=== PATIENT | male | born 1945 | race Caucasian/White ===

== ENCOUNTER → 2020-08-06 10:06 | Outpatient (POV) | payer MEDICARE, SELFPAY ==
[2020-08-06 10:40] VITALS: BP 141/84; PULSE 78; RESP 18; O2SAT 98; BMI 29.9
--- NOTE | 2020-08-06 12:12 | HMH.PMCON ---
Assessment and Plan (1) Sacroiliitis Status: Chronic Category: Medical Code(s): M46.1 - Sacroiliitis, not elsewhere classified (2) Back pain Status: Chronic Category: Medical Code(s): M54.9 - Dorsalgia, unspecified - Assessment and plan all Dx Assessment and Plan for all problems:: We will schedule the patient for bilateral SI joint injections. We will also take over his tramadol 50 mg 1 p.o. 3 times daily. I will follow-up with him after his injections reassess his symptoms at that time he has been instructed to call the office if he has any issues prior to his next appointment. [facility] #[id number] reviewed and appropriate. Dr. Hernandez has reviewed this note and agrees with this plan of care. This note was dictated using voice recognition software and may contain errors or omissions HPI - Data of Consult Consult date: 08/06/20 Requesting Physician: Ana Cruz APRN Primary Care Provider: Referral Provider, MD - Consult Narrative Reason for consult: Low back pain History of present illness: Mr. Aggarwal is a 74 year old male who presents since today for consultation in regards to his low back and hip pain. Patient has bilateral hip and knee pain he has been seeing Dr. Campos Hernández for injections in this area. He states it helps somewhat. Patient rates his pain a 6 out of 10. Most of his pain is over his bilateral SI joints. He has a positive Samara test SI joint compression test and Derek's test and distraction test bilaterally. We discussed bilateral SI joint injections. He would like to move forward with this. He is tried and failed medications, physical therapy. Patient states that rest, IcyHot and tramadol decreases pain while increased activity increases his pain. CC: Ana Cruz APRN [facility] History I have reviewed the patient's past medical history: Yes Medical History: Reports:: Hyperlipidemia Denies:: Cancer, Diabetes Mellitus Type 1, Diabetes Mellitus Type 2, MRSA *Have you ever received a pneumonia vaccine?: Yes *Have you received a flu vaccine this season?: Yes Other Surgeries: Yes: No Previous Surgery Amputation: No Fractures: No - *Social History Alcohol Intake: former Alcohol Intake Frequency:: other *Occupational Status:: retired Housing: house Household Members: other *Travel in the last 8 weeks: None Family Hx:: Unable to obtain Review of Systems - Review of Systems ROS General: no recent weight change, no fever, no sleep disturbances Respiratory: no cough, no shortness of air, no recurring pulmonary infections Cardiovascular/Peripheral Vascular: No chest pain, No palpitations, no edema, no shortness of breath. Gastrointestinal: no new onset incontinence, normal bowel movements reported Genitourinary: no new onset incontinence Musculoskeletal: SI joint pain Psychiatric: normal mood/ affect Neurological: [denies new onset weakness in extremities], [denies new onset balance issues] Meds Home Medications Medication Instructions Recorded Confirmed Type Tramadol HCl [Tramadol 50mg 50 mg PO TID #90 tab 08/06/20 Rx Tab] Objective Vital signs: Pulse Resp BP Pulse Ox 78 18 141/84 H 98 08/06/20 10:40 08/06/20 10:40 08/06/20 10:40 08/06/20 10:40 Narrative: Physical Exam General: Alert and oriented x3, no acute distress, pleasant and cooperative, [on room air] Lungs: Resps E/U, Symmetrical chest expansion, Eyes: PERRL Musculoskeletal: Flexion and extension of lumbar spine somewhat guarded secondary to pain, deep tendon reflexes normal, strength in upper and lower extremities [5/5], [abnormal gait noted] Neurological: speech clear, delivery supervisor 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
== END ==
PROVIDERS: Visit Provider Clinical Nurse Specialist Family Health
DX: M46.1 Sacroiliitis, not elsewhere classified (principal); M54.9 Dorsalgia, unspecified
CPT/HCPCS: 99202; G0463

== ENCOUNTER 2020-08-24 10:16 | Day surgery (SDC) | payer MEDICARE, SELFPAY ==
[2020-08-24 10:34] VITALS: BP 156/78; PULSE 71; RESP 18; TEMP 36.6; O2SAT 98; BMI 29.9
[2020-08-24 11:11] VITALS: BP 125/85; PULSE 85; RESP 18
[2020-08-24 11:12] VITALS: BP 128/89; PULSE 85; RESP 18; O2SAT 98
--- NOTE | 2020-08-24 11:15 | HMH.PMPROC ---
- Procedure Date: 08/24/20 Time: 11:15 Anesthesiologist:: Huey Hernandez MD Complications:: None Pre-procedure Diagnosis:: Sacroiliitis Post-procedure Diagnosis:: Same Indications for Procedure:: Patient reports 74-year-old white male who we are treating for bilateral hip pain. He is tender over both SI joints. He has a positive Derek's test bilaterally. He has a positive Samara test bilaterally. He has a positive SI joint compression test bilaterally. Is positive distraction test bilaterally. We will do bilateral SI joint injections under fluoroscopy today to help with his pain symptoms. Procedure Details:: B/L SI joint injection under fluoroscopy Informed consent was obtained and the risks and benefits of the procedure was explained to the patient. The patient was taken to the procedure room and placed prone on the procedure table. The patient was prepped using ChloraPrep. The skin and subcutaneous tissues overlying the SI joints were anesthetized using lidocaine. I placed a 22-gauge needle first in the left SI joint and second in the right SI joint. Needle placement was confirmed with dye. After this we injected 5 mL bupivacaine 0.25% and Depo-Medrol 40 mg into each SI joint. Patient tolerated the procedure well with no complication. Plan and Disposition:: We will follow-up with him in 2 weeks. Will reevaluate symptoms at that time.
[2020-08-24 11:20] VITALS: BP 169/71; PULSE 68; RESP 18; O2SAT 98
== END 2020-08-24 11:21 | disposition home or self-care (01) ==
LOC: SC.PAINP 10:19
PROVIDERS: PCP Family Medicine; Visit Provider Anesthesiology
DX: M46.1 Sacroiliitis, not elsewhere classified (principal); E78.5 Hyperlipidemia, unspecified; J45.909 Unspecified asthma, uncomplicated; F32.9 Major depressive disorder, single episode, unspecified
CPT/HCPCS: 27096; G0260; J1030; Q9966

== ENCOUNTER → 2020-09-20 09:44 | Outpatient (POV) | payer MEDICARE, SELFPAY ==
[2020-09-20 10:30] VITALS: BP 142/77; PULSE 74; RESP 18; O2SAT 99; BMI 29.2
--- NOTE | 2020-09-20 12:43 | HMH.PAINSOAP ---
[facility] [place] Pain Management SOAP Note Subjective:: Patient is pleasant 74-year-old white male who presents today for follow-up after his SI joint injection. Patient did not get any relief. He has had multiple injections with no long-term relief. Most of his pain is in his lower back and radiating around into his groin area. Patient does have extreme tenderness over his low back. Does have some radiation into his leg at times. We discussed a repeat lumbar MRI. He has not had one recently he rates his pain a 7 out of 10. He is currently on tramadol 50 mg 1 p.o. 3 times daily. We discussed increasing it to 100 mg 3 times daily for short period of time he is agreeable [facility] #[id number] reviewed and appropriate ROS General: no recent weight change, no fever, no sleep disturbances Respiratory: no cough, no shortness of air, no recurring pulmonary infections Cardiovascular/Peripheral Vascular: No chest pain, No palpitations, no edema, no shortness of breath. Gastrointestinal: no new onset incontinence, normal bowel movements reported Genitourinary: no new onset incontinence Musculoskeletal: Pain, leg pain Psychiatric: normal mood/ affect Neurological: [denies new onset weakness in extremities], [denies new onset balance issues] Objective:: Physical Exam General: Alert and oriented x3, no acute distress, pleasant and cooperative, [on room air] Lungs: Resps E/U, Symmetrical chest expansion, Eyes: PERRL Musculoskeletal: Flexion and extension of lumbar spine somewhat guarded secondary to pain, deep tendon reflexes normal, strength in upper and lower extremities [5/5], [abnormal gait noted] Neurological: speech clear, 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 We will follow up with him afterwards reassess his symptoms at that time he has been instructed to call the office if he has any issues prior to his next appointment. Dr. Hernandez has reviewed this note and agrees with this plan of care. This note was dictated using voice recognition software and may contain errors or omissions [facility] [place] History I have reviewed the patient's past medical history: Yes Medical History: Reports:: Hyperlipidemia Denies:: Cancer, Diabetes Mellitus Type 1, Diabetes Mellitus Type 2, MRSA, Seizures *Have you ever received a pneumonia vaccine?: Yes *Have you received a flu vaccine this season?: Yes Other Medical History: Denies: Blood Transfusion Reaction Other Surgeries: Yes: No Previous Surgery, Hernia Repair Amputation: No Fractures: No - *Social History Smoking Status: Unknown if ever smoked Alcohol Intake: never Alcohol Intake Frequency:: other *Occupational Status:: other Housing: house Household Members: spouse *Travel in the last 8 weeks: None Family Hx:: Unable to obtain
== END ==
PROVIDERS: PCP Family Medicine; Visit Provider Clinical Nurse Specialist Family Health
DX: M54.9 Dorsalgia, unspecified (principal); M46.1 Sacroiliitis, not elsewhere classified; M54.16 Radiculopathy, lumbar region
CPT/HCPCS: 99212; G0463

== ENCOUNTER → 2020-10-11 10:16 | Outpatient (POV) | payer MEDICARE, SELFPAY ==
[2020-10-11 10:28] VITALS: BP 167/83; PULSE 62; RESP 18; O2SAT 97; BMI 30.7
--- NOTE | 2020-10-11 11:04 | HMH.PAINSOAP ---
[facility] Pain Management SOAP Note Subjective:: Patient is a 74-year-old white male who presents today for follow-up. He is being treated for low back pain with lumbar radiculopathy type symptoms. Patient has had an SI injection for which she did not get much relief. He says that the pain starts at the base of his low back area and radiates to bilateral sides. He also reports to be having pain into his bilateral lower extremities which gets worse with walking. He does report to be losing his balance with ambulation. Patient is also complaining of bilateral groin pain. He says that the pain does worsen with any type of movement. He did undergo an MRI of his lumbar spine which she is here today to discuss. He does rate his pain a 7 out of 10 today. He has tried anti-inflammatories and has also tried home stretching. Physical therapy has not given him relief in the past. He does have rheumatoid arthritis for which she is treated with injections by his hat cleaner. Review of Systems General: No recent weight changes, no fever, no sleep disturbances Respiratory: No cough, no shortness of air, no recurring pulmonary infections Cardiovascular/peripheral vascular: No chest pain, no palpitations, no edema, no shortness of breath Gastrointestinal: No new onset incontinence, normal bowel movements reported Genitourinary: No new onset incontinence Musculoskeletal: Low back pain with radiation into bilateral legs and bilateral groin Psychiatric: Normal mood/affect Neurological: [Denies weakness in extremities], [denies balance issues] Objective:: Physical exam General: Alert and oriented x3, no acute distress, pleasant and cooperative, [on room air] Lungs: Respirations even and unlabored, symmetrical chest expansion Eyes: PERRL Musculoskeletal: Flexion and extension of lumbar spine somewhat guarded secondary to pain, deep tendon reflexes normal, strength in upper and lower extremities [4/5], [abnormal gait noted] Neurological: Speech clear, forms designer equal, no gross sensory deficit Assessment:: Degenerative disc disease lumbar spine with lumbar radiculopathy symptoms, nerve root impingement at L5 Plan:: The patient and I discussed undergoing an injection to his lumbar spine. He is in agreement. He has tried and failed conservative therapies of physical therapy in the past along with continued home stretching and anti-inflammatories. He is not on anticoagulation therapy. We will schedule him for a lumbar epidural steroid injection at L4-L5. The patient's MRI does note him to have a large renal cyst which is also recommended he undergo a renal protocol CT versus MRI to rule out neoplasm. I have contacted the patient's primary care provider regarding the accidental findings on his MRI. He was also given a copy of his MRI to provide to his primary care provider. Patient says he will stop at his primary care provider's office today to give her the imaging study. We will see him back after his injection to reevaluate his symptoms. Risks and benefits of the procedure have been explained to the patient. Patient would like to proceed with the procedure. Dr. Hernandez has reviewed this note and agrees with this plan of care. This note was dictated using voice recognition software and make contain errors or omissions. [facility] History I have reviewed the patient's past medical history: Yes Medical History: Reports:: Hyperlipidemia Denies:: Cancer, Diabetes Mellitus Type 1, Diabetes Mellitus Type 2, MRSA, Seizures *Have you ever received a pneumonia vaccine?: Yes *Have you received a flu vaccine this season?: Yes Other Medical History: Denies: Blood Transfusion Reaction Other Surgeries: Yes: No Previous Surgery, Hernia Repair Amputation: No Fractures: No - *Social History Smoking Status: Unknown if ever smoked Alcohol Intake: never Alcohol Intake Frequency:: other *Occupational Status:: unemployed Housing: house Household Members: spouse *
== END ==
PROVIDERS: PCP Family Medicine; Visit Provider Clinical Nurse Specialist Family Health
DX: M51.16 Intervertebral disc disorders with radiculopathy, lumbar region (principal); G54.4 Lumbosacral root disorders, not elsewhere classified
CPT/HCPCS: 99212; G0463

== ENCOUNTER 2020-10-19 09:45 | Day surgery (SDC) | payer MEDICARE, SELFPAY ==
[2020-10-19 10:05] VITALS: BP 165/81; PULSE 72; RESP 18; TEMP 36.6; O2SAT 98; BMI 29.1
[2020-10-19 10:30] VITALS: BP 122/77; PULSE 67; RESP 18; O2SAT 96
[2020-10-19 10:35] VITALS: BP 138/85; PULSE 69; RESP 18; O2SAT 94
--- NOTE | 2020-10-19 10:47 | P.PCN_ITS ---
- Procedure Date: 10/19/20 Time: 10:52 Anesthesiologist:: Alisa Murillo MD Complications:: None Pre-procedure Diagnosis:: Lumbar radiculopathy, Degenerative disc disease of the lumbar spine, lumbar spondylosis Post-procedure Diagnosis:: Same Indications for Procedure:: This patient is a very pleasant 74-year-old male who presents today with low back pain radiating into both legs was bilateral groin pain to the above diagnosis. He has trialed conservative treatment including oral pain medications as well as home stretching with more relief. He is also previously undergone an SI joint injection but reports he did not receive much pain relief afterwards. Of note, he also has rheumatoid arthritis for which he is receiving injections by his cargo tank mechanic. Plan for today is for the patient to undergo lumbar epidural steroid injection #1 at L4-L5. Procedure Details:: Informed consent was obtained and the risk and benefits of the procedure was explained to the patient. The patient was taken to the procedure room. The patient was placed prone on the procedure table. The patient was prepped and draped in sterile fashion. C-arm fluoroscopy was used to view the lumbar spine. Skin and subcutaneous tissues were anesthetized using lidocaine. I placed an 18-gauge epidural needle and advanced into the L4-L5 interspace using fluoroscopic guidance and [id number] to air and saline. After confirmation of needle placement in the epidural space with dye I injected 2 mL of lidocaine 1.5% with Depo-Medrol 80 mg. Patient tolerated the procedure well with no complications. Plan and Disposition:: We will follow-up with the patient in 2 weeks and will reevaluate symptoms at that time.
[2020-10-19 10:49] VITALS: BP 119/77; PULSE 67; RESP 20; O2SAT 98
== END 2020-10-19 10:49 | disposition home or self-care (01) ==
LOC: SC.PAINP 09:46
PROVIDERS: PCP Family Medicine; Visit Provider Anesthesiology Pain Medicine
DX: M51.16 Intervertebral disc disorders with radiculopathy, lumbar region (principal); M47.896 Other spondylosis, lumbar region
CPT/HCPCS: 62323; J1040; Q9966

== ENCOUNTER → 2020-11-15 11:13 | Outpatient (POV) | payer MEDICARE, SELFPAY ==
[2020-11-15 11:23] VITALS: BP 113/64; PULSE 67; RESP 18; O2SAT 99; BMI 28.3
--- NOTE | 2020-11-15 11:58 | HMH.PAINSOAP ---
[facility] Pain Management SOAP Note Subjective:: Patient is a 75-year-old white male who presents today for follow-up after a lumbar epidural steroid injection. Patient is being treated for degenerative disc disease lumbar spine with lumbar radiculopathy symptoms and lumbar spondylosis. Patient says that he got about 5 days of relief after the injection. He says that he was much more functional following the injection. He had the injection at L4-L5 area. It was his number 1 injection. His pain is a 6 out of 10 today. He has tried and failed an SI injection. He has also tried and failed physical therapy for more than 6 weeks along with home stretching. He does see a briar cutter for rheumatoid arthritis and is getting injections for his arthritis. Patient says that he would like to undergo a repeat injection. He has pain in his low back that is radiating into his bilateral lower extremities. Patient I did discuss if he does not get significant relief he may be a candidate for medial branch block/facet joint injections. He also has pain when he is bending forward and with turning and extension at waist. Because he got great relief with his initial injection, he would like to proceed with a repeat injection. Patient says he got about 70% relief for 5 days. Review of Systems General: No recent weight changes, no fever, no sleep disturbances Respiratory: No cough, no shortness of air, no recurring pulmonary infections Cardiovascular/peripheral vascular: No chest pain, no palpitations, no edema, no shortness of breath Gastrointestinal: No new onset incontinence, normal bowel movements reported Genitourinary: No new onset incontinence Musculoskeletal: Low back pain with radiation into lower extremities intermittently, pain worse with leaning forward and turning and twisting at waist Psychiatric: Normal mood/affect Neurological: [Denies weakness in extremities], [denies balance issues] Objective:: Physical exam General: Alert and oriented x3, no acute distress, pleasant and cooperative, [on room air] Lungs: Respirations even and unlabored, symmetrical chest expansion Eyes: PERRL Musculoskeletal: Flexion and extension of [] lumbar spine somewhat guarded secondary to pain, deep tendon reflexes normal, strength in upper and lower extremities [5/5], [abnormal gait noted] Neurological: Speech clear, 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 He is not on anticoagulation therapy. We will see him back after his injection for reevaluation of symptoms. If the patient does not get relief with this injection he may be a candidate for medial branch block/facet joint injections. Patient I did discuss these injections today, however, because he got significant relief with his last epidural steroid injection, he would like to repeat an epidural injection once more. We will follow-up with him afterwards to reevaluate his symptoms. Risks and benefits of the procedure have been explained to the patient. Patient would like to proceed with the procedure. Possible side effects of corticosteroids have been discussed with the patient. Patient has been instructed to contact the clinic with any concerns before the next appointment. Dr. Hernandez has reviewed this note and agrees with this plan of care. This note was dictated using voice recognition software and make contain errors or omissions. [facility] History I have reviewed the patient's past medical history: Yes Medical History: Reports:: Hyperlipidemia Denies:: Cancer, Diabetes Mellitus Type 1, Diabetes Mellitus Type 2, MRSA, Seizures *Have you ever received a pneumonia vaccine?: Yes *Have you received a flu vaccine this season?: Yes Other Medical History: Denies: Blood Transfusion Reaction Other Surgeries
== END ==
PROVIDERS: PCP Family Medicine; Visit Provider Clinical Nurse Specialist Family Health
DX: M51.16 Intervertebral disc disorders with radiculopathy, lumbar region (principal); M47.896 Other spondylosis, lumbar region
CPT/HCPCS: 99212; G0463

== ENCOUNTER 2020-12-28 09:07 | Day surgery (SDC) | payer MEDICARE, SELFPAY ==
[2020-12-28 09:08] VITALS: BP 139/78; PULSE 83; RESP 18; TEMP 36.5; O2SAT 97; BMI 29.6
[2020-12-28 09:35] VITALS: BP 145/79; PULSE 79; RESP 18; O2SAT 95
[2020-12-28 09:38] VITALS: BP 144/77; PULSE 77; RESP 18; O2SAT 95
[2020-12-28 09:55] VITALS: BP 147/67; PULSE 77; RESP 20; O2SAT 97
--- NOTE | 2020-12-28 10:20 | HMH.PMPROC ---
- Procedure Date: 12/28/20 Time: 10:20 Anesthesiologist:: Huey Hernandez MD Complications:: None Pre-procedure Diagnosis:: Degenerative disc disease of lumbar spine with lumbar radiculopathy symptoms and lumbar spondylosis Post-procedure Diagnosis:: Same Indications for Procedure:: This patient is a pleasant 75-year-old white male who we are treating for low back pain with lumbar radiculopathy symptoms and lumbar spondylosis. He had 1 lumbar epidural steroid injection which gave him approximately 5 days relief of his pain symptoms. His pain is now back to baseline. We will do a low repeat lumbar epidural steroid injection today. Most of his pain is in his back rating down the left leg. Procedure Details:: Informed consent was obtained and the risk and benefits of the procedure was explained to the patient. The patient was taken to the procedure room. The patient was placed prone on the procedure table. The patient was prepped and draped in sterile fashion. C-arm fluoroscopy was used to view the lumbar spine. Skin and subcutaneous tissues were anesthetized using lidocaine. I placed an 18-gauge epidural needle and advanced into the L4-L5 interspace using fluoroscopic guidance and [id number] to air. After confirmation of needle placement in the epidural space with dye I injected 2 mL of lidocaine 1.5% with Depo-Medrol 80 mg. Patient tolerated the procedure well with no complications. Plan and Disposition:: Given that this patient is only getting short-term relief of his radiculopathy symptoms with the lumbar epidural steroid injections. I do believe he would benefit from a spinal cord stimulator trial. We will seek approval and plan on a [employer] spinal cord stimulator trial to help with his low back pain and left leg pain.
== END 2020-12-28 09:55 | disposition home or self-care (01) ==
LOC: SC.PAINP 09:08
PROVIDERS: PCP Family Medicine; Visit Provider Anesthesiology
DX: M51.16 Intervertebral disc disorders with radiculopathy, lumbar region (principal); M47.896 Other spondylosis, lumbar region; E78.5 Hyperlipidemia, unspecified; N40.0 Benign prostatic hyperplasia without lower urinary tract symptoms; F41.9 Anxiety disorder, unspecified; F32.9 Major depressive disorder, single episode, unspecified
CPT/HCPCS: 62323; J1040; Q9966

== ENCOUNTER → 2021-02-07 14:45 | Outpatient (POV) | payer MEDICARE, SELFPAY ==
[2021-02-07 14:54] VITALS: BP 133/80; PULSE 83; RESP 18; O2SAT 96; BMI 29.6
--- NOTE | 2021-02-07 15:26 | HMH.PAINSOAP ---
[facility] Pain Management SOAP Note Subjective:: Patient is a 75-year-old white male who presents today for follow-up after lumbar epidural steroid injection. The patient reports that he got 3 weeks of relief following the injection. He is complaining of low back pain with radiation into bilateral hips and groin. He is following with Dr. Campos Dickerson and does undergo bilateral knee and hip injections. He does report that he is scheduled for an inguinal nerve block due to continued groin pain. The patient is rating his pain a 7 out of 10 today. At last visit he did discuss with Dr. Hernandez possible spinal cord stimulator trial. Due to the patient's short-term relief with injective therapy Dr. Hernandez did feel the patient would benefit from a spinal cord stimulator trial. The patient has had multiple lumbar epidural steroid injections with only short-term relief. His pain does return. He does get approximately 60 to 70% relief, at most 3 weeks. Patient is rating his pain a 7 out of 10 today. He has tried failed conservative therapies of physical therapy for more than 6 weeks along with continued home stretching and anti-inflammatories in the past. Review of Systems General: No recent weight changes, no fever, no sleep disturbances Respiratory: No cough, no shortness of air, no recurring pulmonary infections Cardiovascular/peripheral vascular: No chest pain, no palpitations, no edema, no shortness of breath Gastrointestinal: No new onset incontinence, normal bowel movements reported Genitourinary: No new onset incontinence Musculoskeletal: Low back pain with radiation into bilateral hips, bilateral knees, and bilateral groin Psychiatric: [Normal mood/affect] Neurological: [Denies weakness in extremities], [denies balance issues] Objective:: Physical exam General: Alert and oriented x3, no acute distress, pleasant and cooperative, [on room air] Lungs: Respirations even and unlabored, symmetrical chest expansion Eyes: PERRL Musculoskeletal: Flexion and extension of [lumbar [spine] somewhat guarded secondary to pain, strength in upper and lower extremities [5/5], [antalgic gait noted] Neurological: Speech clear, [rivet sticker equal], no gross sensory deficit Assessment:: Degenerative disc disease lumbar spine with lumbar radiculopathy symptoms and lumbar spondylosis Plan:: We will schedule the patient for a psychological evaluation to see if he is a candidate for spinal cord stimulation. We will plan to see the patient back in the clinic after his psychological evaluation to discuss a further plan of care. If he is considered an appropriate candidate we will trial him with SCS therapy with Chromatin. He has tried failed conservative therapies of physical therapy for more than 6 weeks, home stretching, injective therapy and anti-inflammatories. He does not get any long-term relief with conventional therapies. Patient has been instructed to contact the clinic with any concerns before the next appointment. Dr. Hernandez has reviewed this note and agrees with this plan of care. This note was dictated using voice recognition software and make contain errors or omissions. [facility] History I have reviewed the patient's past medical history: Yes Medical History: Reports:: Hyperlipidemia Denies:: Cancer, Diabetes Mellitus Type 1, Diabetes Mellitus Type 2, MRSA, Seizures *Have you ever received a pneumonia vaccine?: Yes *Have you received a flu vaccine this season?: No Other Medical History: Denies: Blood Transfusion Reaction Other Surgeries: Yes: No Previous Surgery, Hernia Repair Amputation: No Fractures: No - *Social History Smoking Status: Unknown if ever smoked Alcohol Intake: never Alcohol Intake Frequency:: other *Occupational Status:: unemployed Housing: house Household Members: spouse *Travel in the last 8 weeks: None Family Hx:: Unable to obtain
== END ==
PROVIDERS: Visit Provider Clinical Nurse Specialist Family Health
DX: M51.16 Intervertebral disc disorders with radiculopathy, lumbar region (principal); M47.896 Other spondylosis, lumbar region
CPT/HCPCS: 99212; G0463

== ENCOUNTER → 2021-06-06 10:14 | Outpatient (POV) | payer MEDICARE, SELFPAY ==
[2021-06-06 10:49] VITALS: BP 180/82; PULSE 66; RESP 18; O2SAT 96; BMI 29.6
--- NOTE | 2021-06-06 12:50 | HMH.PAINSOAP ---
[facility] Pain Management SOAP Note Subjective:: Patient is a 75 year old white male who presents today for follow up. He is interested in a repeat lumbar epidural steroid injection, however, says that he is scheduled to undergo a left hip replacement in 1 week. He is having worsening pain in his low back area. He was given tramadol and gabapentin last visit which gave him minimal relief. He has discussed spinal cord stimulator implant which she is also interested in if he does not get significant relief with the hip replacement or possible knee replacements following the hip replacement. He is having 6 out of 10 pain today. The pain is made worse with any type of movement. He says he recently had a inguinal nerve block due to groin pain which did not give him much relief. Review of Systems General: No recent weight changes, no fever, no sleep disturbances Respiratory: No cough, no shortness of air, no recurring pulmonary infections Cardiovascular/peripheral vascular: No chest pain, no palpitations, no edema, no shortness of breath Gastrointestinal: No new onset incontinence, normal bowel movements reported Genitourinary: No new onset incontinence Musculoskeletal: Low back pain with radiation into bilateral hips and groin, bilateral knee pain Psychiatric: [Normal mood/affect] Neurological: [Denies weakness in extremities], [denies balance issues] Objective:: Physical exam General: Alert and oriented x3, no acute distress, pleasant and cooperative Lungs: Respirations even and unlabored, symmetrical chest expansion Eyes: PERRL Musculoskeletal: Flexion and extension of lumbar [spine] somewhat guarded secondary to pain, [antalgic gait noted] Neurological: Speech clear, no gross sensory deficit Assessment:: Degenerative disc disease lumbar spine with lumbar radiculopathy symptoms, lumbar spondylosis, bilateral knee pain, bilateral hip pain Plan:: We will schedule the patient for a 1 month follow-up. We will continue his medicine of [place] 5 mg 1 tablet p.o. twice daily. He understands that if he is given other medication prescribed by his orthopedic provider, he is to immediately stop [place]. He is in agreement. We will follow-up with him in 1 month. Following 6 weeks after surgery he would like to have a lumbar epidural steroid injection. If his pain continues he is also considering a spinal cord stimulator. Risks and benefits of the medication have been explained in detail to the patient. The patient does understand the risk of dependence on the medication when given over a prolonged period. Patient has been advised of risks of oversedation with the prescribed medication. Narcan has been offered to the paitent in the event of oversedation. Patient has been advised that a family member should also be educated regarding administration of Narcan. The patient has been advised to consult with his/her primary care provider and pharmacist regarding drug-drug interaction of medications currently prescribed. Patient has been prescribed a controlled substance after being counseled on the medication, medication safety, and possible side effects. FIDELIA report has been obtained and reviewed prior to prescription and found to be appropriate. Opioid contract was reviewed and signed by the patient, and that they have agreed to all of the terms set forth by our compliance program. Patient has been instructed to contact the clinic with any concerns before the next appointment. Dr. Hernandez has reviewed this note and agrees with this plan of care. This note was dictated using voice recognition software and make contain errors or omissions. [facility] History I have reviewed the patient's past medical history: Yes Medical History: Reports:: Hyperlipidemia Denies:: Cancer, Diabetes Mellitus Type 1, Diabetes Mellitus Type 2, MRSA, Seizures *Have you ever received a pneumonia vaccine?: Yes *Have you received a flu vaccine this season?: Yes Ot
== END ==
PROVIDERS: Visit Provider Clinical Nurse Specialist Family Health
DX: M51.16 Intervertebral disc disorders with radiculopathy, lumbar region (principal); M54.06 Panniculitis affecting regions of neck and back, lumbar region; M25.561 Pain in right knee; M25.562 Pain in left knee; M25.551 Pain in right hip; M25.552 Pain in left hip
CPT/HCPCS: 99212; G0463

== ENCOUNTER → 2021-07-18 14:48 | Outpatient (POV) | payer MEDICARE, SELFPAY ==
[2021-07-18 15:05] VITALS: BP 124/78; PULSE 77; RESP 20; TEMP 36.7; O2SAT 99; BMI 30.2
--- NOTE | 2021-07-18 16:50 | HMH.PAINSOAP ---
[facility] Pain Management SOAP Note Subjective:: Patient is a pleasant 75-year-old male who presents today for follow-up. Patient is currently being treated for degenerative disc disease of the lumbar spine with lumbar radiculopathy symptoms, lumbar spondylosis, bilateral knee pain, bilateral hip pain. Today, patient dates that he fell 2 weeks ago and felt like he twisted his back. Patient says that he has been having significant pain since then. He denies any loss of bowel and bladder functions. Patient states that he cannot tolerate any sudden movements and has been having trouble walking as well to pain. He rates his pain today as 10 out of 10. General: No recent weight changes, no fever, no sleep disturbances Respiratory: No cough, no shortness of air, no recurring pulmonary infections Cardiovascular/peripheral vascular: No chest pain, no palpitations, no edema, no shortness of breath Gastrointestinal: No new onset incontinence, normal bowel movements reported Genitourinary: No new onset incontinence Musculoskeletal: Low back pain Psychiatric: [Normal mood/affect] Neurological: [Denies weakness in extremities], [denies balance issues] Objective:: General: Alert and oriented x3, no acute distress, pleasant and cooperative, [on room air] Lungs: Respirations even and unlabored, symmetrical chest expansion Eyes: PERRL Musculoskeletal: Flexion and extension of lumbar [spine] somewhat guarded secondary to pain; lumbar spine is tender to palpation. Neurological: Speech clear, no gross sensory deficit Assessment:: Acute on chronic low back pain Degenerative disc disease of the lumbar spine with lumbar radiculopathy symptoms Lumbar spondylosis Bilateral knee pain Bilateral hip pain Plan:: Patient has been having issues with his back since he fell about 2 weeks ago. He denies any loss of bowel and bladder functions. Patient says that he has tried [id number] medications with no relief. I will start the patient on a Medrol Dose pack, meloxicam 10mg QD, and Flexeril 5mg TID. I would like to see the patient back in 2 weeks for follow-up. If patient does not get any relief from these multimodal pain medications, I will consider getting an updated MRI of his lumbar spine. Patient has been instructed to contact the clinic with any concerns before the next appointment. Dr. Hernandez has reviewed this note and agrees with this plan of care. This note was dictated using voice recognition software and make contain errors or omissions. [facility] History Medical History: Reports:: Hyperlipidemia Denies:: Cancer, Diabetes Mellitus Type 1, Diabetes Mellitus Type 2, MRSA, Seizures *Have you ever received a pneumonia vaccine?: Yes *Have you received a flu vaccine this season?: Yes Other Medical History: Denies: Blood Transfusion Reaction Other Surgeries: Yes: No Previous Surgery, Hernia Repair Amputation: No Fractures: No - *Social History Smoking Status: Unknown if ever smoked Alcohol Intake: never Alcohol Intake Frequency:: other *Occupational Status:: retired Housing: house Household Members: spouse *Travel in the last 8 weeks: None Family Hx:: Unable to obtain
== END ==
PROVIDERS: Visit Provider Student in an Organized Health Care Education/Training Program
DX: M54.50 Low back pain, unspecified (principal); G89.29 Other chronic pain; M51.16 Intervertebral disc disorders with radiculopathy, lumbar region; M47.816 Spondylosis without myelopathy or radiculopathy, lumbar region; M25.551 Pain in right hip; M25.552 Pain in left hip; M25.561 Pain in right knee; M25.562 Pain in left knee
CPT/HCPCS: 99212; G0463

== ENCOUNTER → 2021-08-05 10:36 | Outpatient (POV) | payer MEDICARE, SELFPAY ==
[2021-08-05 10:45] VITALS: BP 117/63; PULSE 58; RESP 18; TEMP 36.5; O2SAT 97
--- NOTE | 2021-08-05 12:52 | HMH.PAINSOAP ---
[facility] Pain Management SOAP Note Subjective:: Patient is a pleasant 75-year-old male who presents today for follow-up. Patient is currently being treated for degenerative disc disease of lumbar spine with lumbar radiculopathy symptoms, lumbar spondylosis, bilateral knee pain, bilateral hip pain. When I last saw this patient, patient was complaining of acute on chronic low back pain. This was previously treated with an epidural steroid injection. We did not schedule the patient for a lumbar epidural steroid injection last time because he was scheduled for hip surgeries. I did however start the patient on low-dose prednisone, meloxicam 7.5 mg daily, and Flexeril 5 mg 3 times a day. Patient states that these medications have significantly helped his low back pain. He rates his pain today as 4 out of 10. Patient states that he was not able to get his hip surgery because he was recently diagnosed with ringworm and they had to cancel his surgery. He is scheduled to go for his left hip surgery on August 15, 2021. [facility] #[id number] with an active morphine equivalent of 30. Patient is also prescribed Beryl 5 mg by an outside clinic. Review of Systems: General: No recent weight changes, no fever, no sleep disturbances Respiratory: No cough, no shortness of air, no recurring pulmonary infections Cardiovascular/peripheral vascular: No chest pain, no palpitations, no edema, no shortness of breath Gastrointestinal: No new onset incontinence, normal bowel movements reported Genitourinary: No new onset incontinence Musculoskeletal: Improving low back pain, bilateral hip pain, bilateral knee pain Psychiatric: [Normal mood/affect] Neurological: [Denies weakness in extremities], [denies balance issues] Objective:: Physical Exam: General: Alert and oriented x3, no acute distress, pleasant and cooperative, [on room air] Lungs: Respirations even and unlabored, symmetrical chest expansion Eyes: PERRL Musculoskeletal: Flexion and extension of lumbar [spine] somewhat guarded secondary to pain; limited range of motion of bilateral hips and bilateral knees secondary to pain. Neurological: Speech clear, no gross sensory deficit Assessment:: Degenerative disc disease of the lumbar spine with lumbar radiculopathy symptoms Lumbar spondylosis Bilateral knee pain Bilateral hip pain Plan:: Patient had significant relief after starting him on low-dose prednisone for a week, meloxicam 7.5 mg daily, and Flexeril 5 mg 3 times a day. I will refill the patient's meloxicam and Flexeril today. I will provide the patient with 2 months worth of refill on these medications. I would like to see the patient back in 2 months after his hip surgeries. We will see if we can schedule his lumbar epidural steroid injections on his next follow-up. Patient has been instructed to contact the clinic with any concerns before the next appointment. Dr. Hernandez has reviewed this note and agrees with this plan of care. This note was dictated using voice recognition software and make contain errors or omissions. [facility] History Medical History: Reports:: Hyperlipidemia Denies:: Cancer, Diabetes Mellitus Type 1, Diabetes Mellitus Type 2, MRSA, Seizures *Have you ever received a pneumonia vaccine?: Yes *Have you received a flu vaccine this season?: Yes Other Medical History: Denies: Blood Transfusion Reaction Other Surgeries: Yes: No Previous Surgery, Hernia Repair Amputation: No Fractures: No - *Social History Smoking Status: Unknown if ever smoked Alcohol Intake: never Alcohol Intake Frequency:: other *Occupational Status:: retired Housing: house Household Members: spouse *Travel in the last 8 weeks: None Family Hx:: Unable to obtain
== END ==
PROVIDERS: Visit Provider Student in an Organized Health Care Education/Training Program
DX: M51.16 Intervertebral disc disorders with radiculopathy, lumbar region (principal); M47.816 Spondylosis without myelopathy or radiculopathy, lumbar region; M25.561 Pain in right knee; M25.562 Pain in left knee; M25.551 Pain in right hip; M25.552 Pain in left hip
CPT/HCPCS: 99212; G0463